=== PATIENT | male | born 1975 | race Two or more races ===

== ENCOUNTER 2021-07-21 10:41 | Emergency (ER) | payer MEDICAID ==
[~2021-07-21] VITALS: Ht 185.4 cm; Wt 102.1 kg
[2021-07-21 10:44] VITALS: BP 114/69
== END 2021-07-21 12:09 | disposition home or self-care (01) ==
LOC: ER 10:41
DX: G44.209 Tension-type headache, unspecified, not intractable (principal)
CPT/HCPCS: 70450